=== PATIENT | male | born 1980 | race Caucasian/White ===

== ENCOUNTER 2017-02-26 19:52 | Emergency (ER) | payer OTHER ==
[2017-02-26] MEDS ORDERED: LEVE500 PO ×2 (20:02→21:26)
[2017-02-26] MEDS ORDERED: levETIRAcetam 500 MG TAB PO ONE (21:00)
[2017-02-26 21:23] VITALS: BP 125/84; PULSE 100; RESP 17; TEMP 98.3; O2SAT 96
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
--- NOTE | 2017-02-27 09:34 | EKG ---
Date Performed: 02/26/2017 Time Performed: 21:09:16 PTAGE: 37 years EKG: Sinus rhythm NORMAL ECG NO PREVIOUS TRACING DOCTOR: Scott Roberson Interpretating Date/Time 02/27/2017 09:32:36
== END 2017-02-26 21:51 ==
LOC: NEPE 19:52
DX: G40.909 Epilepsy, unspecified, not intractable, without status epilepticus (principal); R11.0 Nausea; Z72.0 Tobacco use; Z79.899 Other long term (current) drug therapy
CPT/HCPCS: 93005

== ENCOUNTER 2017-03-14 05:51 | Emergency (ER) | payer OTHER ==
[~2017-03-14] VITALS: Ht 190.5 cm; Wt 85.0 kg
[~2017-03-14 05:51] MED LIST: LEVE500 PO
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
[2017-03-14] MEDS ORDERED: levETIRAcetam 500 MG TAB PO ONE (06:45)
== END 2017-03-14 06:51 ==
LOC: NEPD 05:51
DX: S00.81XA Abrasion of other part of head, initial encounter (principal); R11.0 Nausea; G40.909 Epilepsy, unspecified, not intractable, without status epilepticus; F19.90 Other psychoactive substance use, unspecified, uncomplicated; Z72.0 Tobacco use; V49.9XXA Car occupant (driver) (passenger) injured in unspecified traffic accident, initial encounter; Z79.899 Other long term (current) drug therapy
CPT/HCPCS: 70450; 99284